=== PATIENT | male | born 1970 ===

== ENCOUNTER 2025-03-28 10:23 | Outpatient (REF) | payer OTHER, SELFPAY ==
[2025-03-28 13:07] LABS: MANUAL DIFF FLAG NO
[2025-03-28 13:10] LABS: Hematocrit 47.3 % (42.0-52.0); Hemoglobin 16.7 g/dl (14.0-18.0); Imm Gran Abs Auto 0.00 X10*3/uL (0.00-0.03); Imm Gran Pct Auto 0.0 % (0.0-0.4); Lymphocytes Absolute Auto 1.7 X10*3/uL (1.2-4.9); Mean Corpuscular HGB Conc 35.3 g/dl (31.0-36.0); Mean Corpuscular Hemoglobin 29.4 pg (27.0-33.0); Mean Corpuscular Volume 83.3 fL (80.0-98.0); NRBC Abs Auto 0.000 X10*3/uL (0.0-0.012); NRBC Pct Auto 0.0 /100WBC (0.0-0.2); Platelet Count 205 X10*3/uL (160-400); Red Blood Count 5.68 X10*6/uL (4.60-5.80); White Blood Count 5.1 X10*3/uL (4.8-10.8)
[2025-03-28 13:31] LABS: Appearance Urine Clear; Glucose Urine UA >=1000 mg/dL (Negative); PH 5.5 (5.0-9.0); Specific Gravity - Urine >= 1.030 (1.005-1.025); UMIC TRIGGER UACC YES
[2025-03-28 13:39] LABS: Microalbum/Creatinine Ratio Ur 51.1 ug/mg cr (<30)
[2025-03-28 18:58] LABS: Alanine Aminotransferase 42 U/L (0-40); Albumin Level 5.2 g/dL (3.5-5.0); Alkaline Phosphatase 110 U/L (39-117); Anion Gap 14 (12-20); Aspartate Amino Transferase 28 U/L (5-37); Blood Urea Nitrogen 14 mg/dL (9-16); Calcium 9.8 mg/dL (8.4-10.2); Carbon Dioxide 28 mmol/L (22-29); Chloride 97 mmol/L (96-108); Cholesterol 263 mg/dL (<200); Estimated Glomerular Filt Rate > 60; HDL Cholesterol 39 mg/dL (>40); Magnesium 2.1 mg/dL (1.6-2.6); Potassium 4.1 mmol/L (3.3-5.1); Sodium 135 mmol/L (135-145); Total Protein 8.5 g/dL (6.5-8.0); Triglycerides 534 mg/dL (<150)
[2025-03-28 19:11] LABS: Folate 13.0 ng/mL (> or = 4.0); Vitamin B12 620 pg/mL (200-900)
[2025-03-29 06:36] LABS: HBS Num1 18.76 mIU/mL (0-7.99); HBsAGNum1 0.39 S/CO (0.00-0.99); HIV Num 1 0.05 S/CO (0.00-0.99); Hepatitis B Surface Antigen Negative (Negative); ~HepC Num1 0.08 S/CO (0.00-0.79); ~Hepatitis B Surface Antibody REACTIVE (Nonreactive); ~Hepatitis C Antibody Nonreactive (Nonreactive)
[2025-04-05 01:48] LABS: VITAMIN D (1,25 OH) D3 50 pg/mL; Vit D (1,25-Dihydroxy) Total 50 pg/mL (18-72); Vitamin D (1,25 OH) D2 <8 pg/mL
== END 2025-03-28 10:24 | disposition home or self-care (01) ==
LOC: HO.HKASLDS 10:23
PROVIDERS: PCP Student in an Organized Health Care Education/Training Program; Visit Provider Student in an Organized Health Care Education/Training Program
DX: E11.9 Type 2 diabetes mellitus without complications (principal); M72.2 Plantar fascial fibromatosis; R30.0 Dysuria; I10 Essential (primary) hypertension; E78.5 Hyperlipidemia, unspecified
CPT/HCPCS: 36415; 80053; 80061; 81001; 81003; 82043; 82570; 82607; 82652; 82746; 83036; 83735; 84443; 85025; 86706; 86803; 87340; 87389

== ENCOUNTER 2025-03-28 10:23 | Outpatient (AMB) | payer OTHER, SELFPAY ==
--- NOTE | 2025-03-28 10:25 | A.OFFPC_ITS ---
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: No Accompanied by: Self / Same As Patient Allergies No Known Allergies Allergy (Verified 03/28/25 10:27) Medication List - Last Reconciled 03/28/25 by Otilio Champion MD aspirin 81 mg PO DAILY atorvastatin 20 mg PO DAILY lisinopril 40 mg PO DAILY Tobacco use date assessed: 03/28/25 Dental Screening Dental Screen Date: 03/28/25 Did you have a dental visit in the last 12 months?: Yes Did you have a dental problem in the last 6 months where you did not have access to dental care?: Yes Was dental information given to patient?: Patient has dentist HPI HPI Comments 2 History of Present Illness0 Details History of Present Illness The patient is a 54-year-old male presenting for management of chronic conditions, medication refills, and evaluation of pain and new urinary symptoms. Diabetes Mellitus: The patient has a history of diabetes for approximately 13-14 years, which is noted to be uncontrolled. He reports symptoms consistent with diabetic neuropathy, including a sensation of warmth in his hands and a pulsating, needle-like pain in the soles of his feet. He has been out of his medication. For health maintenance, he has seen an eye doctor previously and a behavior support specialist, but has not seen a supervisor [employer] this year. Plantar pain/Plantar Fasciitis: The patient reports pain for about a year, which he describes as a pulsating, needle-like sensation in the soles of his feet. He rates the pain as an 8 or 9 out of 10 and notes it is aggravated by lifting heavy objects weighing 50-60 lbs. The pain is worse in the morning and improves as the day progresses. Dysuria: The patient reports intermittent episodes of a tingling and burning sensation upon urination, which he experienced this morning. These symptoms occur even when he drinks a lot of water and happen when he has not taken his medication. Hypertension: The patient has a history of high blood pressure and has been prescribed lisinopril 40 mg. Hyperlipidemia: The patient has a history of high cholesterol and takes atorvastatin 20 mg at night. Medications: - Atorvastatin 20 mg at night for choles terol - Aspirin 81 mg daily - Lisinopril 40 mg for blood pressure - Insulin glargine 60 units at night Social History: - Discussed diet in the context of diabe ambrosio management with a behavior support specialist. - Reports lifting heavy objects (50-60 l bs) as part of his activities. - Inquired about taking vitamins to impr ove energy. Past Medical History - Diabetes Mellitus for 13-14 years - Hypertension - Hyperlipidemia Health Maintenance - Place a referral for podiatry for meeta in diabetic foot exam. - Patient advised he needs an annual eye exam as part of diabetic care. - Recommended daily use of an over-the-c ounter multivitamin. [facility] Medical History (Updated 03/28/25 @ 11:04 by Otilio Champion MD) Hypertension Diabetes type 2 Family History (Updated 03/28/25 @ 10:37 by Stephan Becerra MA) Father No problems noted. Mother Diabetes Social History Housing: House Patient Tobacco Use Status: Never used Tobacco service: No Current occupational status: employed Cognitive needs: No Hearing needs: No Vision needs: Yes (rx glasses) Questionnaire PHQ-9 Over the last 2 weeks, how often have you been bothered by any of the following problems? 1. Little interest or pleasure in doing things: not at all 2. Feeling down, depressed, or hopeless: not at all 3. Trouble falling or staying asleep, or sleeping too much: not at all 4. Feeling tired or having little energy: more than half the days 5. Poor appetite or overeating: not at all 6. Feeling bad about yourself - or that you are a failure or have let yourself or your family down: not at all 7. Trouble concentrating on things, such as reading the newspaper or watching television: not at all 8. Moving or speaking so slowly that other people could have noticed. Or the opposite - being so fidgety or restless that you have been moving around a lot more than usual: not at all 9. Thoughts that you would be better off or of hurting yourself in some way: not at all Total score: 2 Depression Screening Interpretation: Negative Depression Screening Done: Yes Source: Developed by Drs. Félix Malin, Cm Juarez and colleagues, with an educational xochilt from [employer]. Thrive Questionnaire Date Thrive assessed: 03/28/25 I am a: Patient What is your living situation today?: I have a steady place to live Within the past 12 months, did the food you bought not last and you didn't have the money to get more?: Never true Within the past 12 months, did you worry whether your food would run out before you got money to buy more?: Never true Do you have trouble paying for medicines?: No Do you have trouble getting transportation to medical appointments?: No Do you have trouble paying your heating and electricity bill?: No Do you have trouble taking care of your child, family member or friend?: No Are you currently unemployed and looking for a job?: No Are you interested in more education?: No Please select the resources that you would like help with: None Currently or been in a relationship where the following occur: No concerns reported THRIVE Score: 0 AUDIT C Alcohol Use Questionnaire (AUDIT-C) 1. How often do you have a drink containing alcohol?: 2-3 times a week 2. How many drinks containing alcohol do you have on a typical day when you are drinking?: 3 or 4 3. How often do you have six or more drinks on one occasion?: Monthly Total Score: 6 ZULEIKA-7 AMB Questionnaire ZULEIKA-7 Date ZULEIKA - 7 assessed: 03/28/25 Feeling nervous, anxious, or on edge: 1 = Several days Not being able to stop or control worryin = Several days Worrying too much about different things: 1 = Several days Trouble relaxin = Not at all Being so restless that it is hard to sit still: 0 = Not at all Becoming easily annoyed or irritable: 1 = Several days Feeling afraid as if something awful might happen: 0 = Not at all Total ZULEIKA-7 score (0-4 normal; 5-9 mild; 10-14 moderate; 15-21 severe): 4 Source: Developed by Drs. Félix Malin, Cm Juarez and colleagues, with an educational xochilt from [employer]. Review of Systems Narrative Review of Systems - Constitutional: Reports wanting to take vitamins to feel more energy and strength. - Neurological: Reports a sensation of warmth in his hands and a pulsating, needle-like pain in the soles of his feet. - Genitourinary: Reports intermittent tingling and burning with urination, which occurred this morning. - Musculoskeletal: Reports pain for the last year rated at 8-9/10, triggered by lifting heavy objects. 10-point ROS reviewed and negative except as noted in HPI Physical exam (Primary Care) Vital Signs: Last Vital Signs Temp 98.3 F 03/28/25 10:31 Pulse 87 03/28/25 10:31 Resp 16 03/28/25 10:31 BP 165/96 H 03/28/25 10:31 Pulse Ox 97 03/28/25 10:31 Oxygen Delivery Method Room Air 03/28/25 10:31 BMI result Body Mass Index 24.1 Tobacco/Smoking Status: Tobacco use Status Tobacco use date assessed 03/28/25 03/28/25 10:39 Patient Tobacco Use Status Never used Tobacco 03/28/25 10:39 PHQ-9: PHQ-9 Score PHQ-9: Total score 2 03/28/25 10:39 Depression Screening Interpretation: Negative Thrive Assessment: Date of Thrive Assessment Date Thrive assessed 03/28/25 03/28/25 10:39 Currently or been in a relationship where the following occur: No concerns reported Skin Other: Coding Level of Care Code New Pt Level 4 (59813) Diagnoses Diabetes type 2 E11.9 Dysuria R30.0 Hypertension I10 Plantar fasciitis M72.2 Assessment & Plan Assessment & Plan (1) Diabetes type 2: Code(s): E11.9 - Type 2 diabetes mellitus without complications Category: Medical (2) Dysuria: Code(s): R30.0 - Dysuria (3) Hypertension: Code(s): I10 - Essential (primary) hypertension Category: Medical (4) Plantar fasciitis: Code(s): M72.2 - Plantar fascial fibromatosis Plan Consent The patient provided verbal consent to have a picture taken to be included in his medical record. Patient was informed and verbally consented to the use of an ambient scribe for clinic note documentation during this visit. Plan 1. Diabetes Mellitus - Order labs including a complete blood count, complete metabolic panel, B12, folate, vitamin D, hepatitis B and C, hemoglobin A1c, and a lipid panel to assess overall status before restarting medications. - Defer restarting antidiabetic medications until lab results are reviewed. - A referral will be provided for a life educator. 2. Hypertension - Prescribed lisinopril; a three-month supply will be sent to the pharmacy. 3. Plantar Fasciitis - Advised patient to perform stretching exercises for the plantar fascia, suggesting looking up tutorials on YouTube. 4. Follow-Up - Patient can follow up in two weeks or as early as the end of this week to discuss lab results. Discussion Notes I discussed with the patient that we would need to obtain blood work, including a hemoglobin A1c, to assess his current status before starting medications for his diabetes. I will proceed with prescribing lisinopril now for his high blood pressure. I explained that the warmth in his hands is likely due to nerve problems from his uncontrolled diabetes, and the purpose of aspirin is for cardiovascular event prevention, not for that symptom. I informed the patient that his foot pain is consistent with plantar fasciitis and recommended stretching exercises. We discussed the importance of annual exams with an eye doctor and a foot doctor, and I am providing a referral for the latter. I advised that specialist offices will contact him for scheduling and that he should call them if he doesn't hear from them within one to two weeks. We arranged for a follow-up visit as early as this Friday or within two weeks to review the lab results. Patient Instructions - Please go to the laboratory to have your blood drawn. - A prescription for Lisinopril for your blood pressure has been sent to your pharmacy. - You will receive a call to schedule an appointment with a foot doctor (supervisor [employer]). - Make sure to see your eye doctor once a year. - You can look up stretching exercises for your foot pain on YouTube. - You may take a standard daily multivitamin for general health. - Please return to the clinic either at the end of this week or in two weeks to go over your lab results. Medical Decision Making The patient is a 54-year-old male with a 13- to 14-year history of diabetes mellitus, hypertension, and hyperlipidemia who presents for medication refills and evaluation of lower extremity pain and dysuria. He reports he is out of his medications. The clinical picture suggests uncontrolled diabetes with complications of peripheral neuropathy, evidenced by his report of warm hands and neuropathic foot pain. His foot pain is also characteristic of plantar fasciitis. Given that the patient is not currently on his antidiabetic medications, it is prudent to first assess his glycemic control with a hemoglobin A1c and evaluate his kidney and liver function via a CMP before reinitiating treatment. However, given his known hypertension, it is reasonable and safe to restart lisinopril immediately. Comprehensive labs are ordered to guide further management. Preventative care is a burch component of this visit; referrals for annual podiatry and ophthalmology evaluations are indicated and have been discussed. The patient was educated on the likely etiology of his symptoms, differentiating neuropathic pain from other causes and the role of aspirin. Close follow-up is planned to review lab results and titrate medications accordingly. Total time spent caring for the patient today was 30 minutes. This includes time spent before the visit reviewing the chart, time spent documenting, and time spent reviewing laboratory results, diagnostic imaging, medications, performing a medically necessary evaluation, counseling on diagnoses, care coordination, ordering appropriate tests, ordering appropriate medications, review of tests performed by other providers, reporting test results with the patient, communication with other healthcare providers. Orders: Orders 2 Hepatitis B Surface Antibody Today Z13.9 - Encounter for screening, unspecified Hepatitis C Antibody Today Z13.9 - Encounter for screening, unspecified Vitamin B12 and Folate Today Z13.9 - Encounter for screening, unspecified TSH reflex Free T4 Today Z13.9 - Encounter for screening, unspecified Complete Blood Count Auto Diff Today Z13.9 - Encounter for screening, unspecified Comprehensive Met. Panel Today Z13.9 - Encounter for screening, unspecified Hemoglobin A1c Today Z13.9 - Encounter for screening, unspecified Hepatitis B Surface Antigen Today Z13.9 - Encounter for screening, unspecified HIV Ab/Ag Today Z13.9 - Encounter for screening, unspecified Lipid Panel Today Z13.9 - Encounter for screening, unspecified Magnesium Today Z13.9 - Encounter for screening, unspecified UA CC w/rflx Micro + Cult Today Z13.9 - Encounter for screening, unspecified Vitamin D 1,25 dihydroxy Today Z13.9 - Encounter for screening, unspecified Microalbumin, Random (w Creat) Today E11.9 - Type 2 diabetes mellitus without complications Referrals 2 Podiatry Referral E11.9 - Type 2 diabetes mellitus without complications Ophthalmology Referral E11.9 - Type 2 diabetes mellitus without complications Nutrition/Dietitian Referral E11.9 - Type 2 diabetes mellitus without complications Nurse Navigator Referral E11.9 - Type 2 diabetes mellitus without complications Medications: New 2 aspirin 81 mg PO DAILY 90 tabs 0RF lisinopril 40 mg PO DAILY 90 tabs 0RF atorvastatin 20 mg PO DAILY 90 tabs 0RF bacitracin zinc (Antibiotic (bacitracin zinc)) 1 appl topical TID 14 grams 0RF
[2025-03-28 10:31] VITALS: BP 165/96; PULSE 87; RESP 16; TEMP 36.8; O2SAT 97; BMI 24.1
== END 2025-03-28 11:01 | disposition home or self-care (01) ==
LOC: HO.HMCFMS 10:24
PROVIDERS: Visit Provider Student in an Organized Health Care Education/Training Program
DX: E11.9 Type 2 diabetes mellitus without complications (principal); R30.0 Dysuria; I10 Essential (primary) hypertension; M72.2 Plantar fascial fibromatosis

== ENCOUNTER 2025-05-02 13:16 | Outpatient (AMB) | payer OTHER, SELFPAY ==
--- NOTE | 2025-05-02 13:19 | MHC.PC.OV ---
Vital Signs 05/02/25 13:23 Height 5 ft 4.17 in Weight 142 lb 8 oz BMI 24.3 BP 142/67 H Blood Pressure Location Rt brachial Position Sitting Respiration 16 Pulse 71 Pulse Source Pulse Oximeter Temp 97.7 F Temp Source Oral Pulse Oximetry (%) 99 Oxygen Delivery Method Room Air Intake Visit Reasons: EP - Labs Intake Note: Patient present to review labs. Customer Support Agent Required: No Customer Support Agent Name: Dctor speaks maldivian Accompanied by: Daughter Allergies No Known Allergies Allergy (Verified 05/02/25 13:22) Medication List - Last Reconciled 05/02/25 by Otilio Champion MD ammonium lactate 12% 1 appl topical BID aspirin 81 mg PO DAILY atorvastatin 20 mg PO DAILY blood-glucose sensor (CropUpStyle Andrey 3 Plus Sensor device) As directed empagliflozin (Jardiance) 25 mg PO QAM fenofibrate 54 mg PO DAILY icosapent ethyl 2 grams (2 x 1 gram) PO BID lisinopril 40 mg PO DAILY metformin 1,000 mg PO BID Tobacco use date assessed: 03/28/25 Dental Screening Dental Screen Date: 03/28/25 HPI HPI Comments History of Present Illness Details History of Present Illness The patient is a 54 year old male presenting for review of laboratory results from his initial encounter. Hypercholesterolemia: The patient has a total cholesterol of 263 mg/dL and an HDL of 39 mg/dL. He is currently taking atorvastatin 20 mg. Hypertriglyceridemia: Laboratory results show triglycerides are elevated at 534 mg/dL. Type 2 diabetes mellitus: Initial laboratory results revealed an HbA1c of 11.9% and a random glucose of 451 mg/dL, consistent with uncontrolled diabetes mellitus. Microalbuminuria: Laboratory findings are significant for microalbuminuria. Elevated Alanine Aminotransferase (ALT): The patient has an elevated ALT. Medications: - Atorvastatin 20 mg for hypercholesterolemia Diagnostic Results: - Elevated ALT - Triglycerides: 534 mg/dL - Total cholesterol: 263 mg/dL - HDL: 39 mg/dL - Microalbuminuria present - HbA1c: 11.9% - Random glucose: 451 mg/dL Past Medical History Health Maintenance - Provided education on lifestyle modifications. [facility] Medical History (Updated 05/02/25 @ 18:46 by Otilio Champion MD) Elevated ALT measurement Microalbuminuria Low HDL (under 40) Xerosis cutis Hypertriglyceridemia Hypertension Diabetes type 2 Family History Father No problems noted. Mother Diabetes Social History (Updated 05/02/25 @ 13:23 by Toni Ramirez CMA) Housing: House Alcohol intake: current Comment: ocasionally Patient Tobacco Use Status: Never used Tobacco e-Cigarette/Vaping Use: Never Used service: No Current occupational status: employed Cognitive needs: No Hearing needs: No Vision needs: Yes (rx glasses) Questionnaire Thrive Questionnaire Date Thrive assessed: 03/28/25 I am a: Patient What is your living situation today?: I have a steady place to live Within the past 12 months, did the food you bought not last and you didn't have the money to get more?: Never true Within the past 12 months, did you worry whether your food would run out before you got money to buy more?: Never true Do you have trouble paying for medicines?: No Do you have trouble getting transportation to medical appointments?: No Do you have trouble paying your heating and electricity bill?: No Do you have trouble taking care of your child, family member or friend?: No Are you currently unemployed and looking for a job?: No Are you interested in more education?: No Please select the resources that you would like help with: None Currently or been in a relationship where the following occur: No concerns reported THRIVE Score: 0 ZULEIKA-7 AMB Questionnaire ZULEIKA-7 Date ZULEIKA - 7 assessed: 03/28/25 Source: Developed by Drs. Félix Malin, Sonia Albert, Cm Ricic and colleagues, with an educational xochilt from [employer]. Review of Systems Narrative Review of Systems 10-point ROS reviewed and negative except as noted in HPI Physical exam (Primary Care) Vital Signs: Last Vital Signs Temp 97.7 F 05/02/25 13:23 Pulse 71 05/02/25 13:23 Resp 16 05/02/25 13:23 BP 142/67 H 05/02/25 13:23 Pulse Ox 99 05/02/25 13:23 Oxygen Delivery Method Room Air 05/02/25 13:23 BMI result Body Mass Index 24.3 Tobacco/Smoking Status: Tobacco use Status Tobacco use date assessed 03/28/25 05/02/25 13:19 Patient Tobacco Use Status Never used Tobacco 05/02/25 13:23 e-Cigarette/Vaping Use Never Used 05/02/25 13:26 Thrive Assessment: Date of Thrive Assessment Date Thrive assessed 03/28/25 05/02/25 13:19 Currently or been in a relationship where the following occur: No concerns reported Narrative Physical Exam General: Well-appearing, in no acute distress. Vital signs: Within normal limits. HEENT: Normocephalic, atraumatic. PERRLA, EOMI. Conjunctiva clear, sclera anicteric. Oropharynx clear, mucous membranes moist. TMs intact bilaterally. Neck: Supple, no lymphadenopathy, no thyromegaly, no JVD or carotid bruits. Cardiovascular: RRR, normal S1/S2, no murmurs, rubs, or gallops. Peripheral pulses 2+ and symmetric. No edema. Respiratory: Lungs clear to auscultation bilaterally, no wheezes, rales, or rhonchi. Normal effort. Abdomen: Soft, non-tender, non-distended. Normoactive bowel sounds. No hepatosplenomegaly, no masses. MSK: Full range of motion, no joint swelling or deformity. Normal gait. Skin: Warm, dry, intact. No rashes, lesions, or pallor. Neuro: Alert and oriented x3. Cranial nerves II-XII intact. Strength 5/5 throughout. Sensation intact. Reflexes 2+ symmetric. Normal coordination and gait. Psych: Appropriate mood and affect. Normal judgment and insight. Coding Level of Care Code Est Pt Level 3 (88823) Diagnoses Hypertriglyceridemia E78.1 Hypertension I10 Diabetes type 2 E11.9 Xerosis cutis L85.3 Low HDL (under 40) E78.6 Microalbuminuria R80.9 Elevated ALT measurement R74.01 Assessment & Plan Assessment & Plan (1) Hypertriglyceridemia: Code(s): E78.1 - Pure hyperglyceridemia Category: Medical (2) Hypertension: Code(s): I10 - Essential (primary) hypertension Category: Medical (3) Diabetes type 2: Code(s): E11.9 - Type 2 diabetes mellitus without complications Category: Medical (4) Xerosis cutis: Code(s): L85.3 - Xerosis cutis Category: Medical (5) Low HDL (under 40): Code(s): E78.6 - Lipoprotein deficiency Category: Medical (6) Microalbuminuria: Code(s): R80.9 - Proteinuria, unspecified Category: Medical (7) Elevated ALT measurement: Code(s): R74.01 - Elevation of levels of liver transaminase levels Category: Medical Plan Consent Patient was informed and verbally consented to the use of an ambient scribe for clinic note documentation during this visit. Plan 1. Hypertriglyceridemia - Start fenofibrate. - Start omega-3 fatty acids. 2. Hypercholesterolemia - Continue atorvastatin 20 mg at the current dose. 3. Microalbuminuria - Restart metformin 1000 mg twice daily. - Start an SGLT2 inhibitor for renal and cardiac protection. 4. Type 2 Diabetes Mellitus - Will assess insurance coverage for a Freestyle Andrey continuous glucose monitor. Discussion Notes I discussed the patient's recent laboratory results which revealed elevated ALT, triglycerides at 534 mg/dL, cholesterol at 263 mg/dL, and HDL at 39 mg/dL. Additionally, he has microalbuminuria, an A1c of 11.9%, and a random glucose of 451 mg/dL. I recommended starting fenofibrate and omega-3 for his triglycerides and continuing his current dose of atorvastatin 20 mg for cholesterol. For his diabetes and associated microalbuminuria, I advised restarting metformin 1000 mg twice daily and initiating an SGLT2 inhibitor for kidney and heart protection. We will check if his insurance will cover a Freestyle Andrey for glucose monitoring. I also provided education on lifestyle modifications. Patient Instructions - You will begin taking fenofibrate and omega-3 supplements for your high triglycerides. - Continue taking your current dose of atorvastatin 20 mg for your cholesterol. - You will restart metformin at a dose of 1000 mg twice a day. - You will also start a new medication called an SGLT2 inhibitor, which will help protect your kidneys and heart. - We will check if your insurance will approve a continuous glucose monitor called the Freestyle Andrey to help you track your blood sugar. - It is important to follow the lifestyle modification advice we discussed. Medical Decision Making The patient, a 54-year-old male, presents for a review of initial lab work, which shows severely uncontrolled type 2 diabetes (A1c 11.9%, random glucose 451 mg/dL), mixed hyperlipidemia (triglycerides 534 mg/dL, cholesterol 263 mg/dL), and evidence of end-organ damage with microalbuminuria. His elevated ALT is likely related to nonalcoholic fatty liver disease secondary to his metabolic syndrome. The management plan is aggressive and multifactorial to address his high cardiovascular and renal risk. For his severe hypertriglyceridemia, fenofibrate and omega-3 fatty acids are initiated to reduce the risk of pancreatitis. His current statin therapy (atorvastatin 20 mg) will be continued for LDL cholesterol management. Given the microalbuminuria, restarting metformin and adding an SGLT2 inhibitor is crucial for both glycemic control and providing essential cardiorenal protection. To improve glycemic monitoring and management in light of his significantly elevated A1c, a continuous glucose monitor (Freestyle Andrey) is recommended, pending insurance approval. Education on lifestyle modifications was also provided as a foundational component of his comprehensive care plan. Total Time Statement 20 min Total time spent caring for the patient today includes pre-visit chart review, documentation, review of laboratory and diagnostic imaging results, medication reconciliation, medically necessary evaluation, counseling on diagnoses, care coordination, ordering appropriate tests and medications, review of tests performed by other providers, reporting test results to the patient, and communication with other healthcare providers. Medications: New fenofibrate 54 mg PO DAILY 90 tabs 0RF E78.1 - Pure hyperglyceridemia blood-glucose sensor (FreeStyle Andrey 3 Plus Sensor device) As directed 1 ea 6RF E11.9 - Type 2 diabetes mellitus without complications icosapent ethyl 2 grams (2 x 1 gram) PO BID 240 caps 0RF E78.1 - Pure hyperglyceridemia metformin 1,000 mg PO BID 180 tabs 0RF empagliflozin (Jardiance) 25 mg PO QAM 90 tabs 0RF ammonium lactate 12% 1 appl topical BID 400 grams 0RF L85.3 - Xerosis cutis
[2025-05-02 13:23] VITALS: BP 142/67; PULSE 71; RESP 16; TEMP 36.5; O2SAT 99; BMI 24.3
== END 2025-05-02 13:48 | disposition home or self-care (01) ==
LOC: HO.HMCFMS 13:17
PROVIDERS: PCP Student in an Organized Health Care Education/Training Program; Visit Provider Student in an Organized Health Care Education/Training Program
DX: E78.1 Pure hyperglyceridemia (principal); I10 Essential (primary) hypertension; E11.9 Type 2 diabetes mellitus without complications; L85.3 Xerosis cutis; E78.6 Lipoprotein deficiency; R80.9 Proteinuria, unspecified; R74.01 Elevation of levels of liver transaminase levels

== ENCOUNTER → 2025-05-02 13:16 | Outpatient (BNVA) | payer OTHER, SELFPAY | PROVIDERS: PCP Student in an Organized Health Care Education/Training Program; Visit Provider Student in an Organized Health Care Education/Training Program | DX: E78.1 Pure hyperglyceridemia (principal); E11.9 Type 2 diabetes mellitus without complications; I10 Essential (primary) hypertension; L85.3 Xerosis cutis; E78.6 Lipoprotein deficiency; R80.9 Proteinuria, unspecified; R74.01 Elevation of levels of liver transaminase levels | CPT/HCPCS: 99212 ==